=== PATIENT | female | born 1960 | race Two or more races ===

== ENCOUNTER 2018-04-15 07:53 | Outpatient (CLI) | payer OTHER ==
[~2018-04-15] VITALS: Ht 157.5 cm; Wt 63.5 kg
[2018-04-15] MEDS ORDERED: ZANTAC300 MG PO (08:54)
[2018-04-15] MEDS ORDERED: FLONASE16 GM NASAL (08:54)
[2018-04-15] MEDS ORDERED: ZYRTEC10 MG PO (08:54)
== END 2018-04-15 08:15 | disposition home or self-care (01) ==
LOC: OFIC 805 07:53
DX: J39.2 Other diseases of pharynx (principal); R19.6 Halitosis; H90.12 Conductive hearing loss, unilateral, left ear, with unrestricted hearing on the contralateral side; H61.21 Impacted cerumen, right ear; J31.0 Chronic rhinitis; J34.2 Deviated nasal septum; J37.0 Chronic laryngitis; R05 Cough

== ENCOUNTER 2018-06-17 09:35 | Outpatient (CLI) | payer OTHER ==
[~2018-06-17] VITALS: Ht 152.4 cm; Wt 63.5 kg
[~2018-06-17 09:35] MED LIST: FLONASE16 GM NASAL; ZANTAC300 MG PO; ZYRTEC10 MG PO
[2018-06-17] MEDS ORDERED: FLONASE16 GM NASAL (11:14)
[2018-06-17] MEDS ORDERED: ZYRTEC10 MG PO (11:14)
== END 2018-06-17 09:55 | disposition home or self-care (01) ==
LOC: OFIC 805 09:35
DX: H80.83 Other otosclerosis, bilateral (principal); J37.0 Chronic laryngitis; J31.0 Chronic rhinitis; R42 Dizziness and giddiness; H90.12 Conductive hearing loss, unilateral, left ear, with unrestricted hearing on the contralateral side

== ENCOUNTER 2018-07-17 10:27 | Outpatient (CLI) | payer OTHER ==
[~2018-07-17] VITALS: Ht 152.4 cm; Wt 63.5 kg
== END 2018-07-17 10:40 | disposition home or self-care (01) ==
LOC: OFIC 805 10:27
DX: H90.12 Conductive hearing loss, unilateral, left ear, with unrestricted hearing on the contralateral side (principal); R42 Dizziness and giddiness; H80.81 Other otosclerosis, right ear

== ENCOUNTER 2018-07-17 12:59 | Outpatient (CLI) | payer OTHER | END 2018-07-17 13:10 | disposition home or self-care (01) | LOC: LAB 12:59 | DX: R42 Dizziness and giddiness (principal) ==

== ENCOUNTER → 2018-07-20 | Outpatient (CLI) | payer OTHER | END | disposition home or self-care (01) | LOC: MRI 08:53 | DX: R42 Dizziness and giddiness (principal); H80.03 Otosclerosis involving oval window, nonobliterative, bilateral | CPT/HCPCS: 70553 ==

== ENCOUNTER → 2018-08-21 | Outpatient (CLI) | payer OTHER ==
[~2018-08-21] VITALS: Ht 152.4 cm; Wt 63.5 kg
== END | disposition home or self-care (01) ==
LOC: OFIC 805 08:09
DX: H80.83 Other otosclerosis, bilateral (principal); J31.0 Chronic rhinitis; R42 Dizziness and giddiness

== ENCOUNTER 2018-09-09 07:41 | Outpatient (CLI) | payer OTHER ==
[~2018-09-09] VITALS: Ht 152.4 cm; Wt 63.5 kg
== END 2018-09-09 08:00 | disposition home or self-care (01) ==
LOC: OFIC 805 07:41
DX: H80.83 Other otosclerosis, bilateral (principal); R42 Dizziness and giddiness; J31.0 Chronic rhinitis; J37.0 Chronic laryngitis; H90.12 Conductive hearing loss, unilateral, left ear, with unrestricted hearing on the contralateral side

== ENCOUNTER 2018-12-14 15:26 | Outpatient (CLI) | payer OTHER | END 2018-12-14 16:04 | disposition home or self-care (01) | LOC: LAB 15:26 | DX: N20.0 Calculus of kidney (principal); Z51.81 Encounter for therapeutic drug level monitoring ==

== ENCOUNTER 2020-11-10 09:24 | Emergency (ER) | payer OTHER ==
[~2020-11-10] VITALS: Ht 154.9 cm; Wt 63.5 kg
[2020-11-10] MEDS ORDERED: DILTIAZEM ER120 M2 (09:51)
[2020-11-10] MEDS ORDERED: PROTONIX40 MG (09:52)
[2020-11-10] MEDS ORDERED: LEVSIN/SL0.125 MG PO (16:21)
[2020-11-10] MEDS ORDERED: INTESTINEX680 M1 PO (16:21)
[2020-11-10] MEDS ORDERED: LOPERAMIDE2 M1 PO (16:21)
[2020-11-10] MEDS ORDERED: PEPCID AC20 MG PO (16:21)
== END 2020-11-10 16:32 ==
LOC: ER 09:24
DX: K52.89 Other specified noninfective gastroenteritis and colitis (principal); R10.32 Left lower quadrant pain

== ENCOUNTER 2022-07-10 06:11 | Day surgery (SDC) | payer OTHER ==
[~2022-07-10] VITALS: Ht 157.5 cm; Wt 59.0 kg
[~2022-07-10 06:11] MED LIST changes: +DILTIAZEM ER120 M2; +INTESTINEX680 M1 PO; +LEVSIN/SL0.125 MG PO; +LOPERAMIDE2 M1 PO; +PEPCID AC20 MG PO; +PROTONIX40 MG
[2022-07-10] MEDS ORDERED: PERCOCET 5-3251 EACH PO (09:15)
[2022-07-10] MEDS ORDERED: SURFAK240 M1 PO (09:15)
[2022-07-10] MEDS ORDERED: TYLENOL ARTHRI650 MG PO (09:16)
[2022-07-10] MEDS ORDERED: NEURONTIN600 M1 PO (09:16)
== END 2022-07-10 13:00 | disposition home or self-care (01) ==
LOC: CIR.AMB 06:11
PROVIDERS: ATTEND Surgery
DX: K80.10 Calculus of gallbladder with chronic cholecystitis without obstruction (principal); K82.8 Other specified diseases of gallbladder; K42.9 Umbilical hernia without obstruction or gangrene; Z91.013 Allergy to seafood; I10 Essential (primary) hypertension; J45.909 Unspecified asthma, uncomplicated; G43.909 Migraine, unspecified, not intractable, without status migrainosus; K21.9 Gastro-esophageal reflux disease without esophagitis